=== PATIENT | female | born 1980 | race Two or more races ===

== ENCOUNTER 2016-12-11 20:43 | Outpatient (CLI) | payer MEDICAID ==
[2016-12-11 21:57] LABS: PH,URINE 6.5 (5.0-8.0); SPECIFIC GRAVITY 1.015 (1.001-1.030); URINE APPEARANCE CLEAR; URINE BILIRUBIN NEGATIVE (NEGATIVE); URINE BLOOD NEGATIVE (NEGATIVE); URINE COLOR YELLOW; URINE GLUCOSE (UA) NEGATIVE (NEGATIVE); URINE LEUKOCYTE ESTERASE NEGATIVE (NEGATIVE); URINE NITRITE NEGATIVE (NEGATIVE); URINE PROTEIN NEGATIVE (NEGATIVE); URINE UROBILINOGEN NORMAL (0-1 mg/dl)
[2016-12-11 22:18] VITALS: BMI 41.0
== END 2016-12-11 22:10 | disposition home or self-care (01) ==
LOC: FBCOUT 20:43 → FBC 20:43 → FBCOUT 22:10
PROVIDERS: ATTEND Obstetrics & Gynecology
DX: O26.893 Other specified pregnancy related conditions, third trimester (principal); R10.2 Pelvic and perineal pain; O24.013 Pre-existing type 1 diabetes mellitus, in pregnancy, third trimester; E10.69 Type 1 diabetes mellitus with other specified complication; Z3A.30 30 weeks gestation of pregnancy
CPT/HCPCS: 81003; 59025; G0463